=== PATIENT | female | born 1950 | race Caucasian/White ===

== ENCOUNTER 2017-08-17 12:03 | Observation (INO) | payer OTHER ==
[~2017-08-17] VITALS: Ht 160 cm; Wt 59.1 kg
[~2017-08-17 12:03] MED LIST: AMBIEN CR6.25 MG PO; AMLODIPINE BESY10 MG PO; CALCIUM 500 MG1 EACH PO; CIPRO250 MG PO; DAILY VALUE1 EACH PO; FISH OIL 1,0001 EAC7 PO; KEFLEX500 MG PO; LISINOPRIL10 MG PO; MOTRIN IB200 MG PO; MOTRIN800 MG PO; PREDNISONE10 MG PO; SLEEP AID25 M1 PO; VICODIN 5-3001 EACH PO
[2017-08-17 12:52] LABS: HEMATOCRIT 42.8 % (36.0-46.0); HEMOGLOBIN 14.3 G/DL (11.9-15.5); MCH 28.2 PG (29.0-34.0); MCHC 33.4 G/DL (30.0-36.0); MCV 84.4 FL (83-99); PLATELET COUNT 319 K/uL (156-360); RBC DIS.WIDTH-CV 13.2 % (11.8-14.6); RBC DIS.WIDTH-SD 40.7 % (39-53); RED BLOOD COUNT 5.07 M/uL (3.80-5.20); WHITE BLOOD COUNT 7.4 K/uL (4.1-10.2)
[2017-08-17 13:00] LABS: CHLORIDE 104 mEq/L (99-109); POTASSIUM 3.7 mEq/L (3.7-5.4); SODIUM 140 mEq/L (136-147)
[2017-08-17 13:02] LABS: GLUCOSE 119 mg/dL (70-99)
[2017-08-17 13:06] LABS: CREATININE 0.9 mg/dL (0.6-1.3); GFR ESTIMATE (CALCULATED) > 59 mL/min/
[2017-08-17 13:07] LABS: UREA NITROGEN (BUN) 18 mg/dL (9-23)
[2017-08-17 13:12] LABS: TROP-I INTERPRETATION NEGATIVE; TROPONIN-I < 0.01 ng/mL (0.0-0.30)
[2017-08-17] MEDS ORDERED: AMLODIPINE BESYL5 MG PO (15:41)
[2017-08-17] MEDS ORDERED: CENTRUM SILVER1 EAC4 PO (15:46)
[2017-08-17] MEDS ORDERED: ASCORBIC ACID100 MG PO (15:47)
[2017-08-17 16:37] LABS: D-DIMER ELISA < 150.00 ng/mLDDU (<230)
[2017-08-17 16:53] VITALS: BP 134/72
[2017-08-17 18:45] LABS: TROP-I INTERPRETATION NEGATIVE; TROPONIN-I < 0.01 ng/mL (0.0-0.30)
[2017-08-17 19:14] VITALS: BP 137/74
[2017-08-17 23:17] VITALS: BP 121/63
[2017-08-18 00:50] LABS: TROP-I INTERPRETATION NEGATIVE; TROPONIN-I < 0.01 ng/mL (0.0-0.30)
[2017-08-18 03:50] VITALS: BP 122/4
[2017-08-18 06:02] LABS: TROP-I INTERPRETATION NEGATIVE; TROPONIN-I < 0.01 ng/mL (0.0-0.30)
[2017-08-18 07:07] VITALS: BP 117/66
[2017-08-18 11:00] VITALS: BP 146/70
[2017-08-18] MEDS ORDERED: ASPIR-LOW81 MG PO (11:07)
[2017-08-18 13:25] LABS: HEMOGLOBIN A1c (GLYCOHEMOGLOB) 6.1 % (Below 5.7)
== END 2017-08-18 13:49 | disposition home or self-care (01) ==
LOC: EME 12:03 → ENRESERV 14:59 → EDOF 15:15 → 5WEST 15:15 → EDOF 15:15 → ENRESERV 15:20 → 5WEST 16:15
PROVIDERS: Hospitalist
DX: R07.89 Other chest pain (principal); R94.31 Abnormal electrocardiogram [ECG] [EKG]; I10 Essential (primary) hypertension; E11.9 Type 2 diabetes mellitus without complications; Z87.891 Personal history of nicotine dependence; Z79.4 Long term (current) use of insulin; Z79.82 Long term (current) use of aspirin; Z88.2 Allergy status to sulfonamides
CPT/HCPCS: 71046; 80048; 82948; 83036; 83880; 84484; 85027; 85379; 93005; 99281; 99285; G0378; J1650; J1885

== ENCOUNTER → 2017-09-02 | Outpatient (CLI) | payer OTHER ==
[~2017-09-02] MED LIST changes: +AMLODIPINE BESYL5 MG PO; +ASCORBIC ACID100 MG PO; +ASPIR-LOW81 MG PO; +CENTRUM SILVER1 EAC4 PO
== END | disposition home or self-care (01) ==
LOC: RES 07:51
DX: J98.4 Other disorders of lung (principal)
CPT/HCPCS: 94060; 94726; 94729